=== PATIENT | male | born 1990 | race Caucasian/White ===

== ENCOUNTER 2016-12-13 15:11 | Emergency (ER) | payer OTHER ==
[~2016-12-13] VITALS: Ht 182.9 cm; Wt 82.9 kg
[~2016-12-13 15:11] MED LIST: DOCUSATE SODIU100 MG PO; MIRALAX255 GM PO
[2016-12-13] MEDS ORDERED: NARCAN4 MG NS (20:17)
[2016-12-13 20:25] VITALS: BP 113/84
== END 2016-12-13 20:26 | disposition home or self-care (01) ==
LOC: EME 15:11
DX: T40.601A Poisoning by unspecified narcotics, accidental (unintentional), initial encounter (principal); F11.10 Opioid abuse, uncomplicated; F17.200 Nicotine dependence, unspecified, uncomplicated
CPT/HCPCS: 90839; 99281; 99284; J2310

== ENCOUNTER 2018-03-09 15:45 | Inpatient (IN) | payer OTHER ==
[~2018-03-09] VITALS: Ht 182.9 cm; Wt 87.1 kg
[~2018-03-09 15:45] MED LIST changes: +NARCAN4 MG NS
[2018-03-09 16:30] LABS: BASOPHIL (%) 0.1 % (0-1); EOSINOPHIL (%) 0.1 % (0-5); HEMATOCRIT 41.6 % (38.0-50.0); HEMOGLOBIN 15.2 G/DL (12.5-16.6); IMMATURE GRANULOCYTE (%) 0.3 % (0.0-0.7); LYMPHOCYTE (%) 8.9 % (15-42); LYMPHOCYTE COUNT 0.8 K/uL (1.0-2.8); MCH 29.9 PG (29.0-34.0); MCHC 36.5 G/DL (30.0-36.0); MCV 81.7 FL (86-99); MONOCYTE (%) 2.7 % (3-12); MONOCYTE COUNT 0.2 K/uL (0-0.8); NEUTROPHIL (%) 87.9 % (45-76); NEUTROPHIL COUNT 7.6 K/uL (1.8-6.4); PLATELET COUNT 185 K/uL (156-360); RBC DIS.WIDTH-CV 11.8 % (11.8-14.6); RBC DIS.WIDTH-SD 34.8 % (39-53); RED BLOOD COUNT 5.09 M/uL (4.00-5.50); WHITE BLOOD COUNT 8.7 K/uL (4.1-10.2)
[2018-03-09 16:38] LABS: CHLORIDE 106 mEq/L (99-109); POTASSIUM 3.5 mEq/L (3.7-5.4); SODIUM 142 mEq/L (136-147)
[2018-03-09 16:39] LABS: GLUCOSE 119 mg/dL (70-99)
[2018-03-09 16:42] LABS: SERUM ETHYL ALCOHOL < 10 mg/dL
[2018-03-09 16:43] LABS: CREATININE 0.9 mg/dL (0.6-1.3); GFR ESTIMATE (CALCULATED) > 59 mL/min/ (58.99-99999)
[2018-03-09 16:44] LABS: UREA NITROGEN (BUN) 8 mg/dL (9-23)
[2018-03-09 17:45] LABS: APPEARANCE CLEAR ((CLEAR)); BILIRUBIN NEGATIVE; BLOOD SMALL; COLOR STRAW ((YELLOW)); GLUCOSE (STRIP) NEGATIVE; KETONES 20; LEUKOCYTES NEGATIVE; NITRITE NEGATIVE; PROTEIN (STRIP) NEGATIVE; SPECIFIC GRAVITY 1.005 (1.000-1.030); UROBILINOGEN 0.2 MG/DL (0.2-1.0)
[2018-03-09 17:53] LABS: AMPHETAMINE NEGATIVE (500 ng/mL); BARBITURATES NEGATIVE (200 ng/mL); BENZODIAZEPINES NEGATIVE (150 ng/mL); BUPRENORPHINE NEGATIVE (10 ng/mL); COCAINE NEGATIVE (150 ng/mL); METHADONE NEGATIVE (200 ng/mL); METHAMPHETAMINE NEGATIVE (500 ng/mL); OPIATES (MORPHINE) NEGATIVE (100 ng/mL); OXYCODONE NEGATIVE (100 ng/mL); PHENCYCLIDINE NEGATIVE (25 ng/mL); PROPOXYPHENE NEGATIVE (300 ng/mL); THC CANNABINOIDS PRESUMPTIVE POSITIVE (50 ng/mL); TRICYCLIC ANTIDEPRESSANTS NEGATIVE (300 ng/mL)
[2018-03-09 17:57] LABS: BACTERIA NONE SEEN /HPF; CALCIUM OXALATE CRYSTALS 1+ /HPF; EPITHELIAL CELLS NONE SEEN /HPF; MUCUS TRACE /LPF; RED BLOOD CELLS 0-5 /HPF (0-5); WHITE BLOOD CELLS 0-5 /HPF (0-5)
[2018-03-09 18:37] VITALS: BP 120/77
[2018-03-09 18:49] VITALS: BP 120/77
[2018-03-09 18:52] VITALS: BP 120/77
[2018-03-10 07:34] VITALS: BP 130/79
[2018-03-10 17:25] VITALS: BP 138/76
[2018-03-11 08:09] VITALS: BP 123/65
[2018-03-11 17:08] VITALS: BP 115/69
[2018-03-12 07:46] VITALS: BP 124/56
== END 2018-03-12 11:56 | disposition home or self-care (01) | DRG 897 ==
LOC: EME 15:45 → 1WEST 17:55 → EDOF 17:55 → 1WEST 17:55 → ENRESERV 18:16 → 1WEST 18:26
PROVIDERS: Emergency Medicine
PROC: HZ2ZZZZ Detoxification Services for Substance Abuse Treatment (ICD-10-PCS; principal; 2018-03-09)
DX: F11.23 Opioid dependence with withdrawal (principal); F12.90 Cannabis use, unspecified, uncomplicated; F10.10 Alcohol abuse, uncomplicated; F17.200 Nicotine dependence, unspecified, uncomplicated
CPT/HCPCS: 80048; 81003; 84999; 85025; 90839; 99281; 99285; G0480; J0572; J0574; J2405; J7030; Q0169; Q0177